=== PATIENT | female | born 1985 | race Two or more races ===

== ENCOUNTER 2019-09-27 21:20 | Emergency (ER) | payer OTHER ==
[~2019-09-27] VITALS: Ht 167.6 cm; Wt 81.8 kg
[2019-09-27 23:16] LABS: APPEARANCE,URINE TURBID (CLEAR); BILIRUBIN,URINE PRELIM. POSITIVE (NEGATIVE); GLUCOSE, URINE (UA) 100 mg/dL (NEGATIVE); KETONES,URINE 40 mg/dL (NEGATIVE); LEUKOCYTE ESTERASE ,URINE LARGE (NEGATIVE); NITRATE,URINE POSITIVE (NEGATIVE); OCCULT BLOOD,URINE LARGE (NEGATIVE); PROTEIN,URINE SEE CONFIRM (NEGATIVE)
[2019-09-27 23:31] LABS: RBC,URINE Full Field /HPF (0-2)
[2019-09-27 23:32] LABS: BACTERIA,URINE Few /HPF (None Seen); SQUAMOUS EPITHELIAL CELL,UR Few /LPF (None Seen)
[2019-09-27 23:33] LABS: SULFOSALICYLIC ACID,URINE 2+ (Negative)
[2019-09-27 23:57] VITALS: BP 135/80
[2019-09-28] MEDS ORDERED: CEPHALEXIN MONOHYDRATE 500 MG CAPSULE PO ONE
== END 2019-09-28 | disposition home or self-care (01) ==
LOC: EMS 21:22
DX: N39.0 Urinary tract infection, site not specified (principal)
CPT/HCPCS: 87086